=== PATIENT | female | born 1970 | race Caucasian/White ===

== ENCOUNTER 2018-08-19 14:37 | Emergency (ER) | payer SELFPAY, OTHER | END 2018-08-19 16:25 | disposition home or self-care (01) | LOC: FTE 14:37 | DX: R22.0 Localized swelling, mass and lump, head (principal); T40.2X5A Adverse effect of other opioids, initial encounter; I87.309 Chronic venous hypertension (idiopathic) without complications of unspecified lower extremity | CPT/HCPCS: 99282 ==